=== PATIENT | male | born 1980 | race Hispanic/Latino ===

== ENCOUNTER 2016-12-03 14:00 | Emergency (ER) | payer SELFPAY ==
[~2016-12-03] VITALS: Ht 165.1 cm; Wt 136.4 kg
[~2016-12-03 14:00] MED LIST: ASPIRIN EC81 MG PO; ATENOLOL50 MG PO; BACTRIM DS1 TAB PO; CEPHALEXIN500 MG PO; CIPROFLOXACN500 MG PO; KEFLEX500 M1 PO; LORTAB 5-325 MG1 TAB PO; NAPROSYN500 MG PO; NITROSTAT0.4 MG PO; NO; OXYCODONE5 MG PO; PAROXETINE10 MG PO; PERCOCET 5/325M1 TAB PO; PRAVACHOL20 MG PO; ROBITUSSIN AC10 ML PO; ULTRAM50 M1 PO; XARELTO10 MG PO; XERALTO; ZPAK PO; ZYRTEC10 M5 PO
[2016-12-03 14:39] LABS: HEMATOCRIT 43.3 % (39.0-50.0); HEMOGLOBIN 11.9 g/dl (14.0-18.0); IMMATURE GRANULOCYTES 2.3 % (0.0-1.0); MEAN CELL VOLUME 86.9 fL CALC (80.0-100.0); MEAN CORPUSCULAR HGB 23.9 pG CALC (26.0-32.0); MEAN CORPUSCULAR HGB CONC 27.5 g/L CALC (32.0-36.0); NEUT# 8.41 thou/uL (1.82-7.42); RED BLOOD COUNT 4.98 mill/uL (4.70-6.10); RED CELL DISTRI WIDTH 19.8 % (11.5-15.5)
[2016-12-03 14:56] LABS: ACT PARTIAL THROMBO TIME 28.4 SECONDS (20.0-32.5); INTERNATIONAL NORMALIZED RATIO 1.4 RATIO (0.7-1.3); PROTHROMBIN TIME 15.8 SECONDS (9.0-12.5)
[2016-12-03 14:57] LABS: ALKALINE PHOSPHATASE 63 u/l (38-126); ANION GAP 10 (6-22 (CALC)); BILIRUBIN, TOTAL 0.7 mg/dL (0.0-1.4); BUN 14 mg/dL (9-20); BUN/CREATININE RATIO 24 (12-20 (CALC)); CALCIUM 7.9 mg/dL (8.4-10.2); CARBON DIOXIDE 39 mmol/l (22-30); CHLORIDE 91 mmol/l (95-108); CREATININE 0.6 mg/dL (0.7-1.3); GFR > 60 ML/MIN (>=60 (CALC)); GFR FOR AFR.AMER. > 60 ML/MIN (>=60 (CALC)); GLUCOSE 103 mg/dL (75-110); POTASSIUM 4.3 mmol/l (3.5-5.1); SGOT/AST 46 u/l (17-59); SGPT/ALT 69 u/l (21-72); SODIUM 135 mmol/l (137-146); TOTAL PROTEIN 6.1 g/dL (6.3-8.2)
[2016-12-03 15:08] LABS: MYOGLOBIN 30 ng/mL (0 - 121)
[2016-12-03 18:10] VITALS: BP 141/96
== END 2016-12-03 18:10 | disposition short-term general hospital (02) | DRG 292 ==
LOC: ED 14:00
PROVIDERS: Emergency Medicine
DX: I50.9 Heart failure, unspecified (principal); J96.11 Chronic respiratory failure with hypoxia; J90 Pleural effusion, not elsewhere classified; R94.31 Abnormal electrocardiogram [ECG] [EKG]

== ENCOUNTER 2017-03-19 11:58 | Emergency (ER) | payer OTHER ==
[~2017-03-19] VITALS: Ht 165.1 cm; Wt 204.5 kg
[2017-03-19 12:40] LABS: HEMATOCRIT 44.9 % (39.0-50.0); HEMOGLOBIN 12.2 g/dl (14.0-18.0); IMMATURE GRANULOCYTES 2.5 % (0.0-1.0); MEAN CELL VOLUME 83.5 fL CALC (80.0-100.0); MEAN CORPUSCULAR HGB 22.7 pG CALC (26.0-32.0); MEAN CORPUSCULAR HGB CONC 27.2 g/L CALC (32.0-36.0); NEUT# 10.11 thou/uL (1.82-7.42); RED BLOOD COUNT 5.38 mill/uL (4.70-6.10); RED CELL DISTRI WIDTH 19.1 % (11.5-15.5)
[2017-03-19 12:51] LABS: ALBUMIN 3.6 g/dL (3.2-5.0); ALKALINE PHOSPHATASE 61 u/l (38-126); BILIRUBIN, TOTAL 0.5 mg/dL (0.0-1.4); BUN 10 mg/dL (9-20); BUN/CREATININE RATIO 16 (12-20 (CALC)); CALCIUM 7.9 mg/dL (8.4-10.2); CHLORIDE 91 mmol/l (95-108); CREATININE 0.6 mg/dL (0.7-1.3); GFR > 60 ML/MIN (>=60 (CALC)); GFR FOR AFR.AMER. > 60 ML/MIN (>=60 (CALC)); GLUCOSE 138 mg/dL (75-110); POTASSIUM 4.1 mmol/l (3.5-5.1); SGOT/AST 23 u/l (17-59); SGPT/ALT 38 u/l (21-72); SODIUM 139 mmol/l (137-146); TOTAL PROTEIN 6.8 g/dL (6.3-8.2)
[2017-03-19 12:57] LABS: ANION GAP 13 (6-22 (CALC)); CARBON DIOXIDE 39 mmol/l (22-30)
[2017-03-19 13:02] LABS: MYOGLOBIN 40 ng/mL (0 - 121)
[2017-03-19 13:36] VITALS: BP 143/85
== END 2017-03-19 13:45 | disposition home or self-care (01) | DRG 204 ==
LOC: ED 11:58
PROVIDERS: Emergency Medicine
DX: R06.02 Shortness of breath (principal); Z99.81 Dependence on supplemental oxygen; R00.0 Tachycardia, unspecified; Z86.711 Personal history of pulmonary embolism